=== PATIENT | male | born 1940 | race Caucasian/White ===

== ENCOUNTER 2018-04-16 12:36 | Outpatient (REF) | payer MEDICARE, BC, SELFPAY ==
[2018-04-16 22:00] LABS: HCT 40.7 % (40.0-50.0); Mean Corp. HGB Concentration 34.4 g/dL (32.0-36.0); Mean Corpuscular Hemoglobin 34.1 pg (27.0-33.0); Mean Corpuscular Volume 99.3 fL (80-95); Mean Platelet Volume 10.2 fL (8.0-11.0); Platelet Count 207 x1000/uL (130-400); RBC Distribution Width 12.4 % (11.8-14.1)
[2018-04-16 22:35] LABS: ALT 31 U/L (12-78); AST 18 U/L (15-37); Albumin 3.5 g/dL (3.4-5.0); Alkaline Phosphatase 46 U/L (46-116); BUN 18 mg/dL (7-18); Bilirubin, Total 0.6 mg/dL (0.2-1.0); CREATININE 1.01 mg/dL (0.70-1.30); Calcium 8.6 mg/dL (8.5-10.1); Chloride 101 mmol/L (98-107); Glucose 97 mg/dL (70-100); Potassium 4.3 mmol/L (3.5-5.1); Sodium 136 mmol/L (136-145); TSH 0.99 uIU/mL (0.358-3.74); Total Protein 6.4 g/dL (6.4-8.2); Vitamin B12 508 pg/mL (193-986)
== END 2018-04-16 12:56 ==
LOC: NCHCN 12:36
PROVIDERS: PCP Internal Medicine; Visit Provider Internal Medicine
DX: R53.1 Weakness (principal)
CPT/HCPCS: 80053; 85027; 82607; 84443

== ENCOUNTER 2018-06-14 22:39 | Outpatient (REF) | payer MEDICARE, SELFPAY ==
[2018-06-16 12:20] LABS: Campylobacter PCR SEE COMMENTS; Salmonella PCR SEE COMMENTS; Shiga Toxin PCR SEE COMMENTS; Shigella/Enteroinvasive Ecoli SEE COMMENTS
== END 2018-06-14 22:59 ==
LOC: NCHCN 22:39
PROVIDERS: PCP Internal Medicine; Visit Provider Family Medicine
DX: R19.7 Diarrhea, unspecified (principal)
CPT/HCPCS: 87505

== ENCOUNTER 2018-06-17 11:55 | Outpatient (REF) | payer MEDICARE, BC, SELFPAY ==
[2018-06-17 21:54] LABS: Abs Immature Grans 0.01 k/cumm (0.0-0.09); Absolute Basophil Count 0.02 k/cumm (0.0-0.2); Absolute Eosinophil Count 0.06 k/cumm (0.0-0.7); Absolute Lymphocyte Count 1.28 k/cumm (1.2-3.4); Absolute Monocyte Count 0.47 k/cumm (0.11-0.7); Absolute Neutrophil Count 2.55 k/cumm (1.2-6.7); Basophils % 0.5; Eosinophils % 1.4; HGB 14.3 g/dL (13.5-17.5); Immature Grans % 0.2; Lymphocytes % 29.2; Mean Corp. HGB Concentration 33.3 g/dL (32.0-36.0); Mean Corpuscular Hemoglobin 33.3 pg (27.0-33.0); Mean Corpuscular Volume 100.2 fL (80-95); Mean Platelet Volume 9.8 fL (8.0-11.0); Monocytes % 10.7; Platelet Count 213 x1000/uL (130-400); RBC 4.29 m/cumm (4.50-6.00); White Blood Cell Count 4.39 k/cumm (4.4-10.8)
[2018-06-17 22:02] LABS: ALT 31 U/L (12-78); AST 26 U/L (15-37); Albumin 3.8 g/dL (3.4-5.0); Alkaline Phosphatase 52 U/L (46-116); Anion Gap 9.6 mmol/L (3-11); BUN 20 mg/dL (7-18); Bilirubin, Total 0.5 mg/dL (0.2-1.0); CO2 28.4 mmol/L (21.0-32.0); Calcium 8.9 mg/dL (8.5-10.1); Chloride 101 mmol/L (98-107); Estimated GFR 58.56 (mL/min/1.73m2); Glucose 80 mg/dL (70-100); Potassium 4.6 mmol/L (3.5-5.1); Sodium 139 mmol/L (136-145); Total Protein 6.9 g/dL (6.4-8.2)
[2018-06-17 23:15] LABS: ESR 14 MM/HR (1-20)
== END 2018-06-17 12:15 ==
LOC: NCHCN 11:55
PROVIDERS: PCP Internal Medicine
DX: R19.7 Diarrhea, unspecified (principal)
CPT/HCPCS: 80053; 85652; 85025

== ENCOUNTER 2018-06-18 12:19 | Outpatient (REF) | payer MEDICARE, BC, SELFPAY | END 2018-06-18 12:39 | LOC: NCHCN 12:19 | PROVIDERS: PCP Internal Medicine; Visit Provider Nurse Practitioner Family | DX: K57.30 Diverticulosis of large intestine without perforation or abscess without bleeding (principal) | CPT/HCPCS: 87177 ==

== ENCOUNTER 2018-07-01 10:38 | Outpatient (REF) | payer MEDICARE, SELFPAY ==
[2018-07-01 21:58] LABS: Anion Gap 6.4 mmol/L (3-11); BUN 23 mg/dL (7-18); CO2 30.6 mmol/L (21.0-32.0); CREATININE 1.06 mg/dL (0.70-1.30); Calcium 8.7 mg/dL (8.5-10.1); Chloride 103 mmol/L (98-107); Glucose 90 mg/dL (70-100); Potassium 4.5 mmol/L (3.5-5.1); Sodium 140 mmol/L (136-145)
[2018-07-05 14:46] LABS: IgA 146 mg/dL (85-499); Interpretation SEE COMMENTS; Tissue Transglutaminase IgA <1.2 U/mL (<4.0)
== END 2018-07-01 10:58 ==
LOC: NCHCN 10:38
PROVIDERS: PCP Internal Medicine; Visit Provider Family Medicine
DX: I10 Essential (primary) hypertension (principal)
CPT/HCPCS: 80048; 82784; 83516

== ENCOUNTER 2018-07-05 10:46 | Outpatient (REF) | payer MEDICARE, BC, SELFPAY | END 2018-07-05 11:06 | LOC: NCHCN 10:46 | PROVIDERS: PCP Internal Medicine | DX: K57.30 Diverticulosis of large intestine without perforation or abscess without bleeding (principal) | CPT/HCPCS: 87324 ==

== ENCOUNTER 2018-08-11 09:27 | Outpatient (REF) | payer MEDICARE, SELFPAY ==
[2018-08-23 08:56] LABS: Misc Referral (MAYO) See Comments
[2018-08-23 08:58] LABS: Misc Referral (MAYO) See Comments
== END 2018-08-11 09:47 ==
LOC: LBN 09:27
PROVIDERS: PCP Internal Medicine; Visit Provider Internal Medicine Gastroenterology
DX: K52.9 Noninfective gastroenteritis and colitis, unspecified (principal)
CPT/HCPCS: 87329

== ENCOUNTER 2019-12-12 22:16 | Outpatient (REF) | payer MEDICARE, OTHER, SELFPAY ==
[2019-12-14 09:27] LABS: HBs Antibody, Quant <3.1 mIU/mL (See Note); Hepatitis B Surface Ab Negative (See Note)
[2019-12-14 09:35] LABS: Hepatitis B Surface Ag Negative (Negative)
[2019-12-14 10:11] LABS: Hepatitis C Ab w Rflx HCV PCR Negative (Negative)
[2019-12-14 10:29] LABS: Hep A Total Ab w Rflx IgM Negative (Negative)
== END 2019-12-12 22:36 ==
LOC: NCHCN 22:16
PROVIDERS: PCP Internal Medicine; Visit Provider Nurse Practitioner Community Health
DX: Z11.59 Encounter for screening for other viral diseases (principal); Z01.84 Encounter for antibody response examination
CPT/HCPCS: 86706; 86709; 86803; 87340

== ENCOUNTER 2020-02-14 21:41 | Outpatient (REF) | payer MEDICARE, OTHER, SELFPAY ==
[2020-02-17 11:12] LABS: Patient Race White; SARS-CoV-2 RNA Undetected (Undetected); SARS-CoV-2 Specimen Source Nasal
== END 2020-02-14 22:01 ==
LOC: NCHCN 21:41
PROVIDERS: PCP Internal Medicine; Visit Provider Nurse Practitioner Community Health
DX: Z20.828 Contact with and (suspected) exposure to other viral communicable diseases (principal)
CPT/HCPCS: U0003

== ENCOUNTER 2020-03-21 11:44 | Outpatient (REF) | payer MEDICARE, OTHER, SELFPAY ==
[2020-03-21 22:42] LABS: Anion Gap 6.4 mmol/L (3-11); BUN 16 mg/dL (7-18); CO2 28.6 mmol/L (21.0-32.0); CREATININE 1.01 mg/dL (0.70-1.30); Calcium 9.2 mg/dL (8.5-10.1); Chloride 102 mmol/L (98-107); Glucose 94 mg/dL (74-106); Potassium 4.5 mmol/L (3.5-5.1); Sodium 137 mmol/L (136-145)
== END 2020-03-21 12:04 ==
LOC: NCHCN 11:44
PROVIDERS: PCP Internal Medicine; Visit Provider Nurse Practitioner Community Health
DX: Z51.81 Encounter for therapeutic drug level monitoring (principal)
CPT/HCPCS: 80048

== ENCOUNTER 2020-05-08 21:54 | Outpatient (REF) | payer MEDICARE, OTHER, SELFPAY ==
[2020-05-11 09:35] LABS: COVID-19 RT-PCR Result NEGATIVE (Negative)
== END 2020-05-08 22:14 ==
LOC: NCHCN 21:54
PROVIDERS: PCP Internal Medicine; Visit Provider Nurse Practitioner Community Health
DX: Z11.59 Encounter for screening for other viral diseases (principal)
CPT/HCPCS: U0003

== ENCOUNTER 2020-07-16 10:49 | Outpatient (REF) | payer MEDICARE, OTHER, SELFPAY ==
[2020-07-16 22:30] LABS: PSA, Diagnostic <0.1 ng/mL (0.0-6.5)
== END 2020-07-16 10:50 | disposition home or self-care (01) ==
LOC: NCHCN 10:49
PROVIDERS: PCP Nurse Practitioner Community Health; Visit Provider Nurse Practitioner Community Health
DX: Z85.46 Personal history of malignant neoplasm of prostate (principal)
CPT/HCPCS: 84153

== ENCOUNTER 2020-10-08 10:36 | Outpatient (REF) | payer MEDICARE, OTHER, SELFPAY ==
[2020-10-08 21:58] LABS: HCT 42.2 % (40.0-50.0); HGB 14.1 g/dL (13.5-17.5); MCH 33.7 pg (27.0-33.0); MCHC 33.4 % (32.0-36.0); Platelet Count 185 10^3/uL (130-400); RBC 4.18 10^6/uL (4.36-5.78); RDW 12.3 % (11.8-14.1); RDW-SD 46.5 fL; WBC 4.82 10^3/uL (4.4-10.8)
[2020-10-08 22:18] LABS: Hemoglobin A1C 5.5 % (<5.7)
[2020-10-08 22:41] LABS: Anion Gap 6.1 mmol/L (3-11); BUN 29 mg/dL (7-18); CO2 29.9 mmol/L (21.0-32.0); CREATININE 1.1 mg/dL (0.70-1.30); Calcium 8.3 mg/dL (8.5-10.1); Chloride 103 mmol/L (98-107); Ferritin 139 ng/mL (26-388); Glucose 91 mg/dL (74-106); Potassium 5.2 mmol/L (3.5-5.1); Sodium 139 mmol/L (136-145); Vitamin B12 411 pg/mL (193-986)
== END 2020-10-08 10:37 | disposition home or self-care (01) ==
LOC: NCHCN 10:36
PROVIDERS: PCP Nurse Practitioner Community Health; Visit Provider Nurse Practitioner Community Health
DX: R20.2 Paresthesia of skin (principal); I48.92 Unspecified atrial flutter; F41.1 Generalized anxiety disorder; I10 Essential (primary) hypertension; R79.89 Other specified abnormal findings of blood chemistry
CPT/HCPCS: 80048; 85027; 82607; 82728; 83036; 84443

== ENCOUNTER 2020-10-15 22:53 | Outpatient (REF) | payer MEDICARE, OTHER, SELFPAY ==
[2020-10-15 16:55] LABS: Abs Immature Grans 0.01 10^3/uL (0.0-0.06); Absolute Basophil Count 0.05 10^3/uL (0.0-0.2); Absolute Eosinophil Count 0.11 10^3/uL (0.0-0.7); Absolute Lymphocyte Count 1.33 10^3/uL (1.2-3.4); Absolute Monocyte Count 0.38 10^3/uL (0.1-0.8); Basophils % 1.3; Eosinophils % 2.8; HCT 41.2 % (40.0-50.0); HGB 13.8 g/dL (13.5-17.5); Immature Grans % 0.3; Lymphocytes % 33.5; MCH 34.1 pg (27.0-33.0); MCHC 33.5 % (32.0-36.0); MCV 101.7 fL (80-95); MPV 9.8 fL (8.0-11.0); Monocytes % 9.6; Neutrophils % 52.5; Nucleated RBC 0 %; Platelet Count 196 10^3/uL (130-400); RBC 4.05 10^6/uL (4.36-5.78); RDW 12.3 % (11.8-14.1); RDW-SD 46.5 fL; WBC 3.97 10^3/uL (4.4-10.8)
[2020-10-15 16:56] LABS: Absolute Neutrophil Count 2.08 10^3/uL (1.2-6.7)
[2020-10-15 17:07] LABS: Diff Comment Agrees w/ Instrument; RBC Morphology Normal
[2020-10-15 17:54] LABS: Folate 9.2 ng/mL (8.6-20.0)
== END 2020-10-15 22:54 | disposition home or self-care (01) ==
LOC: NCHCN 22:53
PROVIDERS: PCP Nurse Practitioner Community Health; Visit Provider Nurse Practitioner Community Health
DX: D75.89 Other specified diseases of blood and blood-forming organs (principal); G62.9 Polyneuropathy, unspecified
CPT/HCPCS: 85027; 82746; 85025

== ENCOUNTER 2021-01-14 18:46 | Outpatient (REF) | payer MEDICARE, OTHER, SELFPAY ==
[2021-01-14 21:25] LABS: ESR 9 mm/hr (0-20)
[2021-01-14 21:28] LABS: C-Reactive Protein 0.06 mg/dL (0.0-0.3)
== END 2021-01-14 18:47 | disposition home or self-care (01) ==
LOC: NCHCN 18:46
PROVIDERS: PCP Nurse Practitioner Community Health; Visit Provider Nurse Practitioner Community Health
DX: R51.9 Headache, unspecified (principal)
CPT/HCPCS: 85652; 86140

== ENCOUNTER 2021-05-01 19:27 | Outpatient (REF) | payer MEDICARE, OTHER, SELFPAY ==
[2021-05-01 19:16] LABS: Abs Immature Grans 0.01 10^3/uL (0.0-0.06); Absolute Basophil Count 0.04 10^3/uL (0.0-0.2); Absolute Eosinophil Count 0.13 10^3/uL (0.0-0.7); Absolute Lymphocyte Count 1.25 10^3/uL (1.2-3.4); Absolute Monocyte Count 0.51 10^3/uL (0.1-0.8); Absolute Neutrophil Count 2.31 10^3/uL (1.2-6.7); Basophils % 0.9; Eosinophils % 3.1; HCT 40.5 % (40.0-50.0); HGB 13.6 g/dL (13.5-17.5); Immature Grans % 0.2; Lymphocytes % 29.4; MCH 33.5 pg (27.0-33.0); MCHC 33.6 % (32.0-36.0); MCV 99.8 fL (80-95); MPV 9.9 fL (8.0-11.0); Neutrophils % 54.4; Nucleated RBC 0 %; Platelet Count 186 10^3/uL (130-400); RBC 4.06 10^6/uL (4.36-5.78); RDW 11.9 % (11.8-14.1); RDW-SD 43.9 fL; WBC 4.25 10^3/uL (4.4-10.8)
== END 2021-05-01 19:28 | disposition home or self-care (01) ==
LOC: NCHCN 19:27
PROVIDERS: PCP Nurse Practitioner Community Health; Visit Provider Nurse Practitioner Community Health
DX: D72.819 Decreased white blood cell count, unspecified (principal)
CPT/HCPCS: 85025

== ENCOUNTER 2021-11-11 09:04 | Outpatient (REF) | payer MEDICARE, OTHER, SELFPAY ==
[2021-11-13 12:42] LABS: COVID-19 RT-PCR UVMMC Result Negative (Negative)
== END 2021-11-11 09:05 | disposition home or self-care (01) ==
LOC: NCHCN 09:04
PROVIDERS: PCP Nurse Practitioner Community Health; Visit Provider Nurse Practitioner Family
DX: Z20.822 Contact with and (suspected) exposure to COVID-19 (principal); Z01.818 Encounter for other preprocedural examination
CPT/HCPCS: U0003

== ENCOUNTER 2021-12-12 15:45 | Outpatient (REF) | payer MEDICARE, OTHER, SELFPAY ==
[2021-12-12 14:23] LABS: Abs Immature Grans 0.01 10^3/uL (0.0-0.06); Absolute Basophil Count 0.04 10^3/uL (0.0-0.2); Absolute Eosinophil Count 0.14 10^3/uL (0.0-0.7); Absolute Lymphocyte Count 1.34 10^3/uL (1.2-3.4); Absolute Monocyte Count 0.45 10^3/uL (0.1-0.8); Absolute Neutrophil Count 2.67 10^3/uL (1.2-6.7); Basophils % 0.9; HCT 39.5 % (40.0-50.0); HGB 13.9 g/dL (13.5-17.5); Immature Grans % 0.2; Lymphocytes % 28.8; MCH 34.4 pg (27.0-33.0); MCHC 35.2 % (32.0-36.0); MCV 98 fL (80-95); Monocytes % 9.7; Neutrophils % 57.4; Platelet Count 187 10^3/uL (130-400); RBC 4.04 10^6/uL (4.36-5.78); RDW-SD 43.6 fL; WBC 4.65 10^3/uL (4.4-10.8)
[2021-12-12 14:33] LABS: ALT 30 U/L (16-63); AST 30 U/L (15-37); Albumin 3.7 g/dL (3.4-5.0); Alkaline Phosphatase 49 U/L (46-116); Anion Gap 5.7 mmol/L (3-11); BUN 24 mg/dL (7-18); Bilirubin, Total 0.7 mg/dL (0.2-1.0); CO2 29.3 mmol/L (21.0-32.0); CREATININE 1.1 mg/dL (0.70-1.30); Calcium 9.2 mg/dL (8.5-10.1); Chloride 101 mmol/L (98-107); Glucose 64 mg/dL (74-106); Potassium 4.5 mmol/L (3.5-5.1); Sodium 136 mmol/L (136-145)
[2021-12-12 14:49] LABS: Calculated LDL 75 mg/dL (<100); Cholesterol 150 mg/dL (<200); HDL Cholesterol 66 mg/dL (40-60); Triglyceride 45 mg/dL (<150)
[2021-12-13 10:06] LABS: Vitamin B12 373 pg/mL (193-986)
== END 2021-12-12 15:46 | disposition home or self-care (01) ==
LOC: NCHCN 15:45
PROVIDERS: PCP Nurse Practitioner Community Health; Visit Provider Nurse Practitioner Family
DX: I10 Essential (primary) hypertension (principal); D72.819 Decreased white blood cell count, unspecified
CPT/HCPCS: 80053; 80061; 82607; 85025

== ENCOUNTER 2022-02-13 09:32 | Outpatient (REF) | payer MEDICARE, OTHER, SELFPAY ==
[2022-02-13 14:59] LABS: Absolute Basophil Count 0.04 10^3/uL (0.0-0.2); Absolute Eosinophil Count 0.05 10^3/uL (0.0-0.7); Absolute Lymphocyte Count 1.22 10^3/uL (1.2-3.4); Absolute Monocyte Count 0.41 10^3/uL (0.1-0.8); Absolute Neutrophil Count 2.67 10^3/uL (1.2-6.7); Basophils % 0.9; Eosinophils % 1.1; HCT 41.6 % (40.0-50.0); HGB 14.3 g/dL (13.5-17.5); Lymphocytes % 27.8; MCH 33.8 pg (27.0-33.0); MCHC 34.4 % (32.0-36.0); MCV 98 fL (80-95); MPV 10.1 fL (8.0-11.0); Monocytes % 9.3; Neutrophils % 60.9; Platelet Count 209 10^3/uL (130-400); RBC 4.23 10^6/uL (4.36-5.78); RDW 12.3 % (11.8-14.1); RDW-SD 44.1 fL; WBC 4.39 10^3/uL (4.4-10.8)
[2022-02-13 15:46] LABS: ALT 26 U/L (16-63); AST 25 U/L (15-37); Albumin 3.5 g/dL (3.4-5.0); Alkaline Phosphatase 45 U/L (46-116); Anion Gap 5.7 mmol/L (3-11); BUN 17 mg/dL (7-18); Bilirubin, Total 0.5 mg/dL (0.2-1.0); CO2 29.3 mmol/L (21.0-32.0); Calcium 8.9 mg/dL (8.5-10.1); Chloride 102 mmol/L (98-107); Estimated GFR 75.14 (mL/min/1.73m2); Glucose 98 mg/dL (74-106); Magnesium 2.2 mg/dL (1.8-2.4); Potassium 4.7 mmol/L (3.5-5.1); Sodium 137 mmol/L (136-145); TSH (W/Ref FT4) 0.92 uIU/mL (0.36-3.74); Total Protein 7.1 g/dL (6.4-8.2)
== END 2022-02-13 09:33 | disposition home or self-care (01) ==
LOC: NCHCN 09:32
PROVIDERS: PCP Nurse Practitioner Community Health; Visit Provider Registered Nurse
DX: I48.0 Paroxysmal atrial fibrillation (principal)
CPT/HCPCS: 80053; 83735; 84443; 85025

== ENCOUNTER 2022-03-18 16:26 | Outpatient (REF) | payer MEDICARE, OTHER, SELFPAY ==
[2022-03-18 14:45] LABS: Abs Immature Grans 0.01 10^3/uL (0.0-0.06); Absolute Basophil Count 0.04 10^3/uL (0.0-0.2); Absolute Eosinophil Count 0.07 10^3/uL (0.0-0.7); Absolute Lymphocyte Count 1.25 10^3/uL (1.2-3.4); Absolute Monocyte Count 0.34 10^3/uL (0.1-0.8); Absolute Neutrophil Count 2.59 10^3/uL (1.2-6.7); Basophils % 0.9; Eosinophils % 1.6; HCT 40.6 % (40.0-50.0); Immature Grans % 0.2; Lymphocytes % 29.1; MCH 34.1 pg (27.0-33.0); MCHC 34.5 % (32.0-36.0); MCV 99 fL (80-95); MPV 10.1 fL (8.0-11.0); Monocytes % 7.9; Neutrophils % 60.3; Platelet Count 187 10^3/uL (130-400); RBC 4.11 10^6/uL (4.36-5.78); RDW 12.2 % (11.8-14.1); RDW-SD 44.7 fL
[2022-03-18 14:59] LABS: Iron 87 ug/dL (65-175); Total Iron Binding Capacity 282 ug/dL (250-450); Transferrin Sat 31 % (20-55)
[2022-03-18 15:39] LABS: Ferritin 151 ng/mL (26-388); Folate 14.2 ng/mL (8.6-20.0); Vitamin B12 928 pg/mL (193-986)
[2022-03-18 22:39] LABS: PSA, Screening <0.1 ng/mL (<=6.5)
== END 2022-03-18 16:27 | disposition home or self-care (01) ==
LOC: NCHCN 16:26
PROVIDERS: PCP Nurse Practitioner Community Health; Visit Provider Nurse Practitioner Family
DX: D64.9 Anemia, unspecified (principal); Z85.46 Personal history of malignant neoplasm of prostate; Z12.5 Encounter for screening for malignant neoplasm of prostate
CPT/HCPCS: 84153; 82607; 82728; 82746; 83540; 83550; 85025

== ENCOUNTER 2022-07-15 16:09 | Outpatient (REF) | payer MEDICARE, OTHER, SELFPAY ==
[2022-07-15 15:41] LABS: Absolute Basophil Count 0.05 10^3/uL (0.0-0.2); HCT 40.9 % (40.0-50.0); HGB 13.8 g/dL (13.5-17.5); MCH 33.9 pg (27.0-33.0); MCHC 33.7 % (32.0-36.0); MCV 101 fL (80-95); Platelet Count 194 10^3/uL (130-400); RBC 4.07 10^6/uL (4.36-5.78); RDW 12.2 % (11.8-14.1); RDW-SD 45.3 fL; WBC 5.28 10^3/uL (4.4-10.8)
[2022-07-15 16:44] LABS: Absolute Neutrophil Count 2.32 10^3/uL (1.2-6.7)
[2022-07-15 16:45] LABS: Absolute Eosinophil Count 0.05 10^3/uL (0.0-0.7); Absolute Lymphocyte Count 2.32 10^3/uL (1.2-3.4); Absolute Monocyte Count 0.53 10^3/uL (0.1-0.8); Atypical Lymphocytes % 4; Burr Cells (echinocyte) 2+; Diff Comment Manual Differential
== END 2022-07-15 16:10 | disposition home or self-care (01) ==
LOC: NCHCN 16:09
PROVIDERS: PCP Nurse Practitioner Community Health; Visit Provider Nurse Practitioner Family
DX: D64.9 Anemia, unspecified (principal); D72.819 Decreased white blood cell count, unspecified
CPT/HCPCS: 85027; 85007

== ENCOUNTER 2022-12-15 13:25 | Outpatient (REF) | payer MEDICARE, OTHER, SELFPAY ==
[2022-12-17 11:17] LABS: Lyme Ab w Rflx to Lyme Confirm Negative (Negative)
[2022-12-18 21:32] LABS: Anaplasma phagocytophilum Negative (Negative); B. miyamotoi PCR Negative (Negative); Babesia divergens/MO-1 Negative (Negative); Babesia duncani Negative (Negative); Babesia microti Negative (Negative); Ehrlichia chaffeensis Negative (Negative); Ehrlichia ewingii/canis Negative (Negative); Ehrlichia muris eauclairensis Negative (Negative)
== END 2022-12-15 13:26 | disposition home or self-care (01) ==
LOC: NCHCN 13:25
PROVIDERS: PCP Nurse Practitioner Community Health; Visit Provider Family Medicine
DX: T14.8XXA Other injury of unspecified body region, initial encounter (principal); W57.XXXA Bitten or stung by nonvenomous insect and other nonvenomous arthropods, initial encounter
CPT/HCPCS: 87798; 86618

== ENCOUNTER 2023-06-16 18:45 | Outpatient (REF) | payer MEDICARE, OTHER, SELFPAY ==
[2023-06-16 21:39] LABS: Abs Immature Grans 0.02 10^3/uL (0.0-0.06); Absolute Basophil Count 0.05 10^3/uL (0.0-0.2); Absolute Lymphocyte Count 1.77 10^3/uL (1.2-3.4); Absolute Monocyte Count 0.56 10^3/uL (0.1-0.8); Absolute Neutrophil Count 5.17 10^3/uL (1.2-6.7); Basophils % 0.7; Eosinophils % 1.3; HCT 44.3 % (40.0-50.0); HGB 15.3 g/dL (13.5-17.5); Immature Grans % 0.3; Lymphocytes % 23.1; MCH 34.2 pg (27.0-33.0); MCHC 34.5 % (32.0-36.0); MCV 99 fL (80-95); Monocytes % 7.3; Neutrophils % 67.3; Platelet Count 198 10^3/uL (130-400); RBC 4.48 10^6/uL (4.36-5.78); RDW 11.9 % (11.8-14.1); WBC 7.67 10^3/uL (4.4-10.8)
[2023-06-16 21:57] LABS: ALT 26 U/L (16-63); AST 25 U/L (15-37); Albumin 3.8 g/dL (3.4-5.0); Alkaline Phosphatase 52 U/L (46-116); Anion Gap 7.3 mmol/L (3-11); BUN 24 mg/dL (7-18); Bilirubin, Total 0.9 mg/dL (0.2-1.0); CO2 26.7 mmol/L (21.0-32.0); CREATININE 1.1 mg/dL (0.70-1.30); Calcium 9.1 mg/dL (8.5-10.1); Calculated LDL 80 mg/dL (<100); Chloride 103 mmol/L (98-107); Cholesterol 155 mg/dL (<200); Estimated GFR 66.61 (mL/min/1.73m2); Glucose 91 mg/dL (74-106); HDL Cholesterol 64 mg/dL (40-60); Potassium 4.4 mmol/L (3.5-5.1); Sodium 137 mmol/L (136-145); TSH (W/Ref FT4) 1.43 uIU/mL (0.36-3.74); Total Protein 7.2 g/dL (6.4-8.2); Triglyceride 55 mg/dL (<150)
[2023-06-17 18:08] LABS: PSA, Screening <0.1 ng/mL (<=6.5)
== END 2023-06-16 18:46 | disposition home or self-care (01) ==
LOC: NCHCN 18:45
PROVIDERS: PCP Nurse Practitioner Community Health; Visit Provider Family Medicine
DX: I48.0 Paroxysmal atrial fibrillation (principal)
CPT/HCPCS: 80053; 80061; 84153; 83655; 84443; 85025